=== PATIENT | female | born 1990 | race American Indian/Alaskan Native ===

== ENCOUNTER 2016-07-24 19:42 | Emergency (ER) | payer MEDICAID ==
[2016-07-24 20:13] VITALS: BP 156/78
[2016-07-24 20:27] LABS: Basophils % (Auto) 0.3 % (0.0-1.8); Eosinophils % (Auto) 3.3 % (0.0-4.3); Hematocrit 36.6 % (30.3-42.9); Mean Corpuscular HGB Conc 33 % (30-34); Mean Corpuscular Volume 76 fl (79-97); Platelet Count 288 K/mm3 (140-440); Red Blood Count 4.82 M/mm3 (3.65-5.03); Red Cell Distribution Width 13.7 % (13.2-15.2); White Blood Count 7.8 K/mm3 (4.5-11.0)
[2016-07-24 20:29] LABS: Mean Corpuscular Hemoglobin 25 pg (28-32)
[2016-07-24 20:49] LABS: Anion Gap 18 mmol/L; Blood Urea Nitrogen 9 mg/dL (7-17); Calcium 8.8 mg/dL (8.4-10.2); Carbon Dioxide 21 mmol/L (22-30); Chloride 102.1 mmol/L (98-107); Glucose 118 mg/dL (65-100); Sodium 137 mmol/L (137-145)
== END 2016-07-25 00:15 | disposition left against medical advice (07) ==
LOC: ED 19:42
DX: R42 Dizziness and giddiness (principal); R06.02 Shortness of breath; R68.83 Chills (without fever); Z53.21 Procedure and treatment not carried out due to patient leaving prior to being seen by health care provider
CPT/HCPCS: 36415; 80048; 84439; 84443; 84703; 85025; 93005; 93010

== ENCOUNTER 2018-10-17 14:55 | Emergency (ER) | payer SELFPAY | END 2018-10-17 17:00 | disposition left against medical advice (07) | LOC: ED 14:55 | DX: R51 Headache (principal); Z53.21 Procedure and treatment not carried out due to patient leaving prior to being seen by health care provider ==

== ENCOUNTER 2018-10-18 17:35 | Emergency (ER) | payer SELFPAY ==
[2018-10-18] MEDS ORDERED: TYLENOL PO ONE (19:57)
[2018-10-18] MEDS ORDERED: REGLAN PO ONE (19:57)
[2018-10-18] MEDS ORDERED: DECADRON IM ONE (19:57)
[2018-10-18] MEDS ORDERED: BENADRYL PO ONE (19:57)
--- NOTE | 2018-10-18 21:34 | Emergency Department Report ---
ED Headache HPI - General Chief Complaint: Headache Stated Complaint: HEADACHES Time Seen by Provider: 10/18/18 19:57 - History of Present Illness Initial Comments: Patient is a 27-year-old Citizen Of [place] female with hx of asthma , who presents for fall headache 3 days history of same history includes sinusitis and allergic rhinitis patient does state thick postnasal drip symptoms are exacerbated by position and movement this headache is similar to headaches of past. there is no fever at this time. Timing/Duration: other (3 days ) Quality: moderate Head Injury Location: frontal Recent Head Trauma: occasional headaches Associated Symptoms: fever/chills, nasal congestion, nasal drainage, sinus infection Allergies/Adverse Reactions: Allergies amoxicillin [Amoxicillin] Allergy (Verified 10/17/18 15:01) Hives Penicillins Allergy (Verified 10/17/18 15:01) Hives Home Medications: Ambulatory Orders Clindamycin [Clindamycin CAP] 300 mg PO TID #30 capsule 04/13/13 HYDROcodone/ACETAMINOPHEN [Mustang 5/325 Tablet] 1 each PO Q6HR #20 tablet 4 Loratadine [Claritin] 10 mg PO DAILY #30 tablet 04/13/13 Prednisone 40 mg PO QDAY #10 tablet 04/13/13 Acyclovir 400 mg PO TID #21 tablet 12/14/13 Prednisone [Prednisone 10 mg (6-Day Pack, 21 Tabs)] 10 mg PO .TAPER #1 tab.ds.pk 12/14/13 Sulfamethoxazole/Trimethoprim [Bactrim Ds] 1 each PO BID #24 tablet 12/14/13 ALBUTEROL NEB's [Proventil 0.083% NEBS] 2.5 mg IH TID PRN #25 neb 03/21/14 Albuterol Sulfate [Ventolin HFA] 2 puff IH Q4H PRN #1 hfa.aer.ad 03/21/14 Azithromycin [Zithromax Z-MIC] 250 mg PO DAILY #6 tablet 03/21/14 Codeine Phosphate/Guaifenesin [Guaifenesin-Codeine Syrup] 5 ml PO Q6H PRN #8 oz 03/21/14 Nebulizer [Compact Compressor Nebulizer] 1 each MC DAILY #1 kit 03/21/14 predniSONE [Deltasone] 50 mg PO QDAY #5 tab 03/21/14 ALBUTEROL Inhaler (OR & NICU) [ProAir HFA Inhaler] 2 puff IH QID PRN #1 inhalation 10/18/18 Acetaminophen [Acetaminophen TAB] 1,000 mg PO Q6HR PRN #30 tablet 10/18/18 Clindamycin [Clindamycin CAP] 300 mg PO Q8H 10 Days #30 cap 10/18/18 Metoclopramide [Reglan] 10 mg PO Q6H PRN #30 tab 10/18/18 diphenhydrAMINE [Benadryl CAP] 25 mg PO Q6HR PRN #30 capsule 10/18/18 ED Review of Systems ROS: Stated complaint: HEADACHES Other details as noted in HPI Constitutional: chills, fever, malaise Eyes: denies: eye pain, eye discharge, vision change ENT: congestion, other Respiratory: denies: cough, shortness of breath, wheezing Cardiovascular: denies: chest pain, palpitations Endocrine: no symptoms reported Gastrointestinal: denies: abdominal pain, nausea, diarrhea Genitourinary: denies: urgency, dysuria, discharge Musculoskeletal: denies: back pain, joint swelling, arthralgia Skin: denies: rash, lesions Neurological: denies: headache, weakness, paresthesias Psychiatric: denies: anxiety, depression Hematological/Lymphatic: denies: easy bleeding, easy bruising ED Past Medical Hx - Past Medical History Previous Medical History?: Yes Hx Hypertension: No Hx CVA: No Hx Heart Attack/AMI: No Hx Congestive Heart Failure: No Hx Diabetes: No Hx Deep Vein Thrombosis: No Hx Pulmonary Embolism: No Hx GERD: No Hx Liver Disease: No Hx Renal Disease: No Hx Sickle Cell Disease: No Hx Arthritis: No Hx Headaches / Migraines: Yes (frequent sinus infections) Hx Seizures: No Hx Kidney Stones: No Hx Psychiatric Treatment: No Hx Asthma: Yes Additional medical history: hyperthyroidism - Surgical History Past Surgical History?: Yes Hx Cholecystectomy: Yes Additional Surgical History: tubal ligation - Social History Smoking Status: Never Smoker - Medications Home Medications: Home Medications Medication Instructions Recorded Confirmed Last Taken Type Clindamycin [Clindamycin CAP] 300 mg PO TID #30 capsule 04/13/13 Unknown Rx HYDROcodone/ACETAMINOPHEN [Mustang 1 each PO Q6HR #20 tablet 04/13/13 Unknown Rx 5/325 Tablet] Loratadine [Claritin] 10 mg PO DAILY #30 tablet 04/13/13 Unknown Rx Prednisone 40 mg PO QDAY #10 tablet 04/13/13 Unknown Rx Acyclovir 400 mg PO TID #21 tablet 12/14/13 Unknown Rx Prednisone [Prednisone 10 mg 10 mg PO .TAPER #1 tab.ds.pk 12/14/13 Unknown Rx (6-Day Pack, 21 Tabs)] Sulfamethoxazole/Trimethoprim 1 each PO BID #24 tablet 12/14/13 Unknown Rx [Bactrim Ds] ALBUTEROL NEB's [Proventil 0.083% 2.5 mg IH TID PRN #25 neb 03/21/14 Unknown Rx NEBS] Albuterol Sulfate [Ventolin HFA] 2 puff IH Q4H PRN #1 hfa.aer.ad 03/21/14 Unknown Rx Azithromycin [Zithromax Z-MIC] 250 mg PO DAILY #6 tablet 03/21/14 Unknown Rx Codeine Phosphate/Guaifenesin 5 ml PO Q6H PRN #8 oz 03/21/14 Unknown Rx [Guaifenesin-Codeine Syrup] Nebulizer [Compact Compressor 1 each MC DAILY #1 kit 03/21/14 Unknown Rx Nebulizer] predniSONE [Deltasone] 50 mg PO QDAY #5 tab 03/21/14 Unknown Rx ALBUTEROL Inhaler (OR & NICU) 2 puff IH QID PRN #1 inhalation 10/18/18 Unknown Rx [ProAir HFA Inhaler] Acetaminophen [Acetaminophen TAB] 1,000 mg PO Q6HR PRN #30 tablet 10/18/18 Unknown Rx Clindamycin [Clindamycin CAP] 300 mg PO Q8H 10 Days #30 cap 10/18/18 Unknown Rx Metoclopramide [Reglan] 10 mg PO Q6H PRN #30 tab 10/18/18 Unknown Rx diphenhydrAMINE [Benadryl CAP] 25 mg PO Q6HR PRN #30 capsule 10/18/18 Unknown Rx ED Physical Exam - General Limitations: No Limitations General appearance: alert, in no apparent distress - Head Head exam: Present: atraumatic, normocephalic, normal inspection - Eye Eye exam: Present: normal appearance, PERRL, EOMI. Absent: conjunctival injection, nystagmus Pupils: Present: normal accommodation - ENT ENT exam: Present: mucous membranes moist, TM's normal bilaterally, normal external ear exam, other (bialt frontal and maxillary sinus pain to palpation no swelling no erythema ) - Expanded ENT Exam Expanded Throat exam: Positive: tonsillar erythema, tonsillomegaly, other (clear post nasal drip ). Negative: tonsillar exudate, R peritonsillar mass, L peritonsillar mass - Neck Neck exam: Present: normal inspection, full ROM, lymphadenopathy. Absent: tenderness, meningismus, thyromegaly - Expanded Neck Exam Expanded Neck exam: Absent: tenderness, midline deformity, anterior neck swelling, thyroid mass, carotid bruit, tracheal deviation - Respiratory Respiratory exam: Present: normal lung sounds bilaterally. Absent: respiratory distress, wheezes, stridor, chest wall tenderness - Cardiovascular Cardiovascular Exam: Present: regular rate, normal rhythm, normal heart sounds. Absent: systolic murmur, diastolic murmur, rubs, gallop - GI/Abdominal GI/Abdominal exam: Present: soft, normal bowel sounds. Absent: distended, tenderness, bruit, hernia - Rectal Rectal exam: Present: deferred - Extremities Exam Extremities exam: Present: normal inspection, full ROM, normal capillary refill. Absent: tenderness, pedal edema, joint swelling, calf tenderness - Back Exam Back exam: Present: normal inspection, full ROM. Absent: tenderness, CVA tenderness (R), CVA tenderness (L), muscle spasm, paraspinal tenderness, vertebral tenderness, rash noted - Neurological Exam Neurological exam: Present: alert, oriented X3, CN II-XII intact, normal gait, reflexes normal. Absent: motor sensory deficit - Psychiatric Psychiatric exam: Present: normal affect, normal mood - Skin Skin exam: Present: warm, dry, intact, normal color. Absent: rash ED Course Vital Signs 10/18/18 10/18/18 10/18/18 17:49 20:25 21:11 Temperature 98.4 F Pulse Rate 86 Respiratory 16 20 20 Rate Blood Pressure 129/75 O2 Sat by Pulse 100 Oximetry ED Medical Decision Making - Medical Decision Making headache improved with medications given in ed plan: tx for sinutis, clindamycin, tylenol, reglan, ibuprofen, will refill albuterol inhaler, pt will follow up with pcp in 2-3 days return to ed if symptoms worsen, pt verbalized agreement and understanding of discharge plan. Critical care attestation.: If time is entered above; I have spent that time in minutes in the direct care o f this critically ill patient, excluding procedure time. ED Disposition Clinical Impression: Sinusitis Qualifiers: Sinusitis location: maxillary Chronicity: acute Recurrence: non-recurrent Qualified Code(s): J01.00 - Acute maxillary sinusitis, unspecified Headache Qualifiers: Headache type: unspecified Headache chronicity pattern: acute headache Intractability: not intractable Qualified Code(s): R51 - Headache Disposition: DC- TO HOME OR SELFCARE Is pt being admited?: No Does the pt Need Aspirin: No Condition: Stable Instructions: Sinusitis (ED), Acute Headache (ED) Prescriptions: Acetaminophen [Acetaminophen TAB] 1,000 mg PO Q6HR PRN #30 tablet PRN Reason: Headache diphenhydrAMINE [Benadryl CAP] 25 mg PO Q6HR PRN #30 capsule PRN Reason: Headache Clindamycin [Clindamycin CAP] 300 mg PO Q8H 10 Days #30 cap ALBUTEROL Inhaler (OR & NICU) [ProAir HFA Inhaler] 2 puff IH QID PRN #1 inhalation PRN Reason: Shortness Of Breath Metoclopramide [Reglan] 10 mg PO Q6H PRN #30 tab PRN Reason: Headache Referrals: TARA SUNG MD [Primary Care Provider] - 3-5 Days Forms: Work/School Release Form(ED) Time of Disposition: 21:43
[2018-10-18 22:09] VITALS: BP 120/78
== END 2018-10-18 22:13 | disposition home or self-care (01) ==
LOC: ED 17:35
DX: J32.1 Chronic frontal sinusitis (principal); J32.0 Chronic maxillary sinusitis; G43.909 Migraine, unspecified, not intractable, without status migrainosus; J45.909 Unspecified asthma, uncomplicated; E05.90 Thyrotoxicosis, unspecified without thyrotoxic crisis or storm; Z90.49 Acquired absence of other specified parts of digestive tract; Z98.51 Tubal ligation status; Z79.899 Other long term (current) drug therapy; Z88.1 Allergy status to other antibiotic agents; Z88.0 Allergy status to penicillin
CPT/HCPCS: 96372; 99282; J1100

== ENCOUNTER 2019-01-17 10:34 | Emergency (ER) | payer SELFPAY ==
[2019-01-17 10:39] VITALS: BP 147/79
--- NOTE | 2019-01-17 10:52 | Emergency Department Report ---
ED ENT HPI - General Chief complaint: Sore Throat Stated complaint: STREP THROAT/HEADACHE Time Seen by Provider: 01/17/19 10:47 Source: patient Mode of arrival: Ambulatory Limitations: No Limitations - History of Present Illness Initial comments: This is a very pleasant 28-year-old female who presents with sore throat for the past 2 days. No fever. Mild nasal congestion. No cough. 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 Multiple sick contacts. Mild symptoms. Penicillin allergy history. MD complaint: sore throat -: Gradual, days(s) (2) Severity: mild Improves with: none Worsens with: swallowing - Related Data Previous Rx's Medication Instructions Recorded Last Taken Type Clindamycin [Clindamycin CAP] 300 mg PO TID #30 capsule 04/13/13 Unknown Rx HYDROcodone/ACETAMINOPHEN [[place] 1 each PO Q6HR #20 tablet 04/13/13 Unknown Rx 5/325 Tablet] Loratadine [Claritin] 10 mg PO DAILY #30 tablet 04/13/13 Unknown Rx Prednisone 40 mg PO QDAY #10 tablet 04/13/13 Unknown Rx Acyclovir 400 mg PO TID #21 tablet 12/14/13 Unknown Rx Prednisone [Prednisone 10 mg 10 mg PO .TAPER #1 tab.ds.pk 12/14/13 Unknown Rx (6-Day Pack, 21 Tabs)] Sulfamethoxazole/Trimethoprim 1 each PO BID #24 tablet 12/14/13 Unknown Rx [Bactrim Ds] ALBUTEROL NEB's [Proventil 0.083% 2.5 mg IH TID PRN #25 neb 03/21/14 Unknown Rx NEBS] Albuterol Sulfate [Ventolin HFA] 2 puff IH Q4H PRN #1 hfa.aer.ad 03/21/14 Unknown Rx Azithromycin [Zithromax Z-MIC] 250 mg PO DAILY #6 tablet 03/21/14 Unknown Rx Codeine Phosphate/Guaifenesin 5 ml PO Q6H PRN #8 oz 03/21/14 Unknown Rx [Guaifenesin-Codeine Syrup] Nebulizer [Compact Compressor 1 each MC DAILY #1 kit 03/21/14 Unknown Rx Nebulizer] predniSONE [Deltasone] 50 mg PO QDAY #5 tab 03/21/14 Unknown Rx ALBUTEROL Inhaler (OR & NICU) 2 puff IH QID PRN #1 inhalation 10/18/18 Unknown Rx [ProAir HFA Inhaler] Acetaminophen [Acetaminophen TAB] 1,000 mg PO Q6HR PRN #30 tablet 10/18/18 Unknown Rx Clindamycin [Clindamycin CAP] 300 mg PO Q8H 10 Days #30 cap 10/18/18 Unknown Rx Metoclopramide [Reglan] 10 mg PO Q6H PRN #30 tab 10/18/18 Unknown Rx diphenhydrAMINE [Benadryl CAP] 25 mg PO Q6HR PRN #30 capsule 10/18/18 Unknown Rx Azithromycin [Zithromax TAB] 250 mg PO QDAY 5 Days #6 tablet 01/17/19 Unknown Rx Allergies Allergy/AdvReac Type Severity Reaction Status Date / Time amoxicillin [Amoxicillin] Allergy Hives Verified 10/17/18 15:01 Penicillins Allergy Hives Verified 10/17/18 15:01 ED Dental HPI - General Chief complaint: Sore Throat Stated complaint: STREP THROAT/HEADACHE Time Seen by Provider: 01/17/19 10:47 Source: patient Mode of arrival: Ambulatory Limitations: No Limitations - Related Data Previous Rx's Medication Instructions Recorded Last Taken Type Clindamycin [Clindamycin CAP] 300 mg PO TID #30 capsule 04/13/13 Unknown Rx HYDROcodone/ACETAMINOPHEN [[place] 1 each PO Q6HR #20 tablet 04/13/13 Unknown Rx 5/325 Tablet] Loratadine [Claritin] 10 mg PO DAILY #30 tablet 04/13/13 Unknown Rx Prednisone 40 mg PO QDAY #10 tablet 04/13/13 Unknown Rx Acyclovir 400 mg PO TID #21 tablet 12/14/13 Unknown Rx Prednisone [Prednisone 10 mg 10 mg PO .TAPER #1 tab.ds.pk 12/14/13 Unknown Rx (6-Day Pack, 21 Tabs)] Sulfamethoxazole/Trimethoprim 1 each PO BID #24 tablet 12/14/13 Unknown Rx [Bactrim Ds] ALBUTEROL NEB's [Proventil 0.083% 2.5 mg IH TID PRN #25 neb 03/21/14 Unknown Rx NEBS] Albuterol Sulfate [Ventolin HFA] 2 puff IH Q4H PRN #1 hfa.aer.ad 03/21/14 Unknown Rx Azithromycin [Zithromax Z-MIC] 250 mg PO DAILY #6 tablet 03/21/14 Unknown Rx Codeine Phosphate/Guaifenesin 5 ml PO Q6H PRN #8 oz 03/21/14 Unknown Rx [Guaifenesin-Codeine Syrup] Nebulizer [Compact Compressor 1 each MC DAILY #1 kit 03/21/14 Unknown Rx Nebulizer] predniSONE [Deltasone] 50 mg PO QDAY #5 tab 03/21/14 Unknown Rx ALBUTEROL Inhaler (OR & NICU) 2 puff IH QID PRN #1 inhalation 10/18/18 Unknown Rx [ProAir HFA Inhaler] Acetaminophen [Acetaminophen TAB] 1,000 mg PO Q6HR PRN #30 tablet 10/18/18 Unknown Rx Clindamycin [Clindamycin CAP] 300 mg PO Q8H 10 Days #30 cap 10/18/18 Unknown Rx Metoclopramide [Reglan] 10 mg PO Q6H PRN #30 tab 10/18/18 Unknown Rx diphenhydrAMINE [Benadryl CAP] 25 mg PO Q6HR PRN #30 capsule 10/18/18 Unknown Rx Azithromycin [Zithromax TAB] 250 mg PO QDAY 5 Days #6 tablet 01/17/19 Unknown Rx Allergies Allergy/AdvReac Type Severity Reaction Status Date / Time amoxicillin [Amoxicillin] Allergy Hives Verified 10/17/18 15:01 Penicillins Allergy Hives Verified 10/17/18 15:01 ED Review of Systems ROS: Stated complaint: STREP THROAT/HEADACHE Other details as noted in HPI Constitutional: denies: fever, malaise ENT: denies: congestion Respiratory: denies: cough, shortness of breath Cardiovascular: denies: chest pain Gastrointestinal: denies: abdominal pain, nausea Skin: denies: rash, lesions Neurological: denies: headache ED Past Medical Hx - Past Medical History Hx Hypertension: No Hx CVA: No Hx Heart Attack/AMI: No Hx Congestive Heart Failure: No Hx Diabetes: No Hx Deep Vein Thrombosis: No Hx Pulmonary Embolism: No Hx GERD: No Hx Liver Disease: No Hx Renal Disease: No Hx Sickle Cell Disease: No Hx Arthritis: No Hx Headaches / Migraines: Yes (frequent sinus infections) Hx Seizures: No Hx Kidney Stones: No Hx Psychiatric Treatment: No Hx Asthma: Yes Additional medical history: hyperthyroidism - Surgical History Hx Cholecystectomy: Yes Additional Surgical History: tubal ligation - Social History Smoking Status: Never Smoker - Medications Home Medications: Home Medications Medication Instructions Recorded Confirmed Last Taken Type Clindamycin [Clindamycin CAP] 300 mg PO TID #30 capsule 04/13/13 Unknown Rx HYDROcodone/ACETAMINOPHEN [[place] 1 each PO Q6HR #20 tablet 04/13/13 Unknown Rx 5/325 Tablet] Loratadine [Claritin] 10 mg PO DAILY #30 tablet 04/13/13 Unknown Rx Prednisone 40 mg PO QDAY #10 tablet 04/13/13 Unknown Rx Acyclovir 400 mg PO TID #21 tablet 12/14/13 Unknown Rx Prednisone [Prednisone 10 mg 10 mg PO .TAPER #1 tab.ds.pk 12/14/13 Unknown Rx (6-Day Pack, 21 Tabs)] Sulfamethoxazole/Trimethoprim 1 each PO BID #24 tablet 12/14/13 Unknown Rx [Bactrim Ds] ALBUTEROL NEB's [Proventil 0.083% 2.5 mg IH TID PRN #25 neb 03/21/14 Unknown Rx NEBS] Albuterol Sulfate [Ventolin HFA] 2 puff IH Q4H PRN #1 hfa.aer.ad 03/21/14 Unknown Rx Azithromycin [Zithromax Z-MIC] 250 mg PO DAILY #6 tablet 03/21/14 Unknown Rx Codeine Phosphate/Guaifenesin 5 ml PO Q6H PRN #8 oz 03/21/14 Unknown Rx [Guaifenesin-Codeine Syrup] Nebulizer [Compact Compressor 1 each MC DAILY #1 kit 03/21/14 Unknown Rx Nebulizer] predniSONE [Deltasone] 50 mg PO QDAY #5 tab 03/21/14 Unknown Rx ALBUTEROL Inhaler (OR & NICU) 2 puff IH QID PRN #1 inhalation 10/18/18 Unknown Rx [ProAir HFA Inhaler] Acetaminophen [Acetaminophen TAB] 1,000 mg PO Q6HR PRN #30 tablet 10/18/18 Unknown Rx Clindamycin [Clindamycin CAP] 300 mg PO Q8H 10 Days #30 cap 10/18/18 Unknown Rx Metoclopramide [Reglan] 10 mg PO Q6H PRN #30 tab 10/18/18 Unknown Rx diphenhydrAMINE [Benadryl CAP] 25 mg PO Q6HR PRN #30 capsule 10/18/18 Unknown Rx Azithromycin [Zithromax TAB] 250 mg PO QDAY 5 Days #6 tablet 01/17/19 Unknown Rx ED Physical Exam - General Limitations: No Limitations General appearance: alert, in no apparent distress - Head Head exam: Present: atraumatic, normocephalic - Eye Eye exam: Absent: normal appearance, scleral icterus, conjunctival injection - ENT ENT exam: Present: other (erythematous edematous white exudates) - Neck Neck exam: Present: normal inspection, full ROM - Respiratory Respiratory exam: Absent: respiratory distress - Extremities Exam Extremities exam: Present: normal inspection - Neurological Exam Neurological exam: Present: alert, oriented X3 - Psychiatric Psychiatric exam: Present: normal affect, normal mood - Skin Skin exam: Present: warm, dry, intact, normal color ED Course Vital Signs 01/17/19 10:36 Temperature 97.9 F Pulse Rate 111 H Respiratory 19 Rate Blood Pressure 147/79 [Right] O2 Sat by Pulse 98 Oximetry ED Medical Decision Making - Medical Decision Making strep throat rx: azithromycin Critical care attestation.: If time is entered above; I have spent that time in minutes in the direct care of this critically ill patient, excluding procedure time. ED Disposition Clinical Impression: Strep throat Disposition: DC-01 TO HOME OR SELFCARE Is pt being admited?: No Does the pt Need Aspirin: No Condition: Stable Instructions: Strep Throat (ED) Prescriptions: Azithromycin [Zithromax TAB] 250 mg PO QDAY 5 Days #6 tablet
== END 2019-01-17 11:23 | disposition home or self-care (01) ==
LOC: ED 10:34
DX: J02.9 Acute pharyngitis, unspecified (principal); G43.909 Migraine, unspecified, not intractable, without status migrainosus; Z88.0 Allergy status to penicillin; Z88.1 Allergy status to other antibiotic agents; Z79.899 Other long term (current) drug therapy; Z90.49 Acquired absence of other specified parts of digestive tract; Z98.51 Tubal ligation status
CPT/HCPCS: 99281

== ENCOUNTER 2019-08-06 17:44 | Emergency (ER) | payer SELFPAY ==
[2019-08-06] MEDS ORDERED: SODIUM CHLORIDE 0.9% 1000 ML 1,000 ML IV ONE (17:47)
[2019-08-06] MEDS ORDERED: ALBUTEROL 2.5 MG/3 ML NEBU IH ONE (17:47)
[2019-08-06] MEDS ORDERED: IPRATROPIUM 0.02% NEBU 2.5 ML IH ONE (17:47)
[2019-08-06] MEDS ORDERED: methylPREDNISolone Sod Succinate 125 MG/2 ML INJ IV ONE (18:00)
--- NOTE | 2019-08-06 18:01 | Emergency Department Report ---
HPI - General Time Seen by Provider: 08/06/19 17:46 - HPI HPI: 28-year-old -[place] female presents to the emergency department from home with the complaint of a 2-day history of shortness of breath that has been getting progressively worse despite using her home inhaler and nebulizer treatments. She says she has a history of asthma but has not required any admission for asthma since she was 11 years old. She has never required intubation. She denies any fever but does admit to a dry cough and some wheezing. No recent travel or sick contacts at home. No known exposure to anyone with Covid 19. She denies any tobacco or illicit drug use. She also has a history of hypothyroidism. ED Past Medical Hx - Past Medical History Previous Medical History?: Yes Hx Hypertension: No Hx CVA: No Hx Heart Attack/AMI: No Hx Congestive Heart Failure: No Hx Diabetes: No Hx Deep Vein Thrombosis: No Hx Pulmonary Embolism: No Hx GERD: No Hx Liver Disease: No Hx Renal Disease: No Hx Sickle Cell Disease: No Hx Arthritis: No Hx Headaches / Migraines: Yes (frequent sinus infections) Hx Seizures: No Hx Kidney Stones: No Hx Psychiatric Treatment: No Hx Asthma: Yes Additional medical history: hyperthyroidism - Surgical History Past Surgical History?: Yes Hx Cholecystectomy: Yes Additional Surgical History: tubal ligation - Social History Smoking Status: Never Smoker Substance Use Type: Alcohol - Medications Home Medications: Home Medications Medication Instructions Recorded Confirmed Last Taken Type Clindamycin [Clindamycin CAP] 300 mg PO TID #30 capsule 04/13/13 Unknown Rx Loratadine (Nf) [Claritin] 10 mg PO DAILY #30 tablet 04/13/13 Unknown Rx Acyclovir 400 mg PO TID #21 tablet 12/14/13 Unknown Rx Albuterol Sulfate [Ventolin HFA] 2 puff IH Q4H PRN #1 hfa.aer.ad 03/21/14 Unknown Rx Azithromycin [Zithromax Z-MIC] 250 mg PO DAILY #6 tablet 03/21/14 Unknown Rx Codeine Phosphate/Guaifenesin 5 ml PO Q6H PRN #8 oz 03/21/14 Unknown Rx [Guaifenesin-Codeine Syrup] Nebulizer [Compact Compressor 1 each MC DAILY #1 kit 03/21/14 Unknown Rx Nebulizer] Acetaminophen [Acetaminophen TAB] 1,000 mg PO Q6HR PRN #30 tablet 10/18/18 Unknown Rx Albuterol INH(or & Nicu Only) 2 puff IH QID PRN #1 inhalation 10/18/18 Unknown Rx [ProAir HFA Inhaler] Clindamycin [Clindamycin CAP] 300 mg PO Q8H 10 Days #30 cap 10/18/18 Unknown Rx Metoclopramide [Reglan] 10 mg PO Q6H PRN #30 tab 10/18/18 Unknown Rx diphenhydrAMINE [Benadryl CAP] 25 mg PO Q6HR PRN #30 capsule 10/18/18 Unknown Rx Azithromycin [Zithromax TAB] 250 mg PO QDAY 5 Days #6 tablet 01/17/19 Unknown Rx ALBUTEROL NEB's [Proventil 0.083% 2.5 mg IH TID PRN #25 neb 08/06/19 Unknown Rx NEBS] predniSONE [Deltasone] 20 mg PO QDAY #3 tab 08/06/19 Unknown Rx ED Review of Systems ROS: Stated complaint: ASTHMA Other details as noted in HPI Comment: All other systems reviewed and negative Constitutional: denies: chills, fever Respiratory: cough, shortness of breath, wheezing Cardiovascular: denies: chest pain, edema Gastrointestinal: denies: abdominal pain, vomiting Genitourinary: denies: dysuria, discharge Musculoskeletal: denies: back pain, arthralgia Skin: denies: rash, lesions Neurological: denies: headache, weakness Physical Exam - Physical Exam Vital Signs: Vital Signs 08/06/19 08/06/19 17:52 17:58 Temperature 98.9 F Pulse Rate 89 Respiratory 28 H Rate Blood Pressure 139/92 O2 Sat by Pulse 99 Oximetry Physical Exam: GENERAL: The patient is well-developed well-nourished. HENT: Normocephalic. Atraumatic. Patient has moist mucous membranes. EYES: Extraocular motions are intact. NECK: Supple. Trachea is midline. CHEST/LUNGS: Mild wheezing throughout the chest. There is tachypnea but the patient appears to be hyperventilating. HEART/CARDIOVASCULAR: Regular. There is no tachycardia. ABDOMEN: Abdomen is soft, nontender. Patient has normal bowel sounds. SKIN: Skin is warm and dry. NEURO: The patient is awake, alert, and oriented. The patient is cooperative. The patient has no focal neurologic deficits. Normal speech. MUSCULOSKELETAL: There is no tenderness or deformity. There is no evidence of acute injury. ED Course Vital Signs 08/06/19 08/06/19 17:52 17:58 Temperature 98.9 F Pulse Rate 89 Respiratory 28 H Rate Blood Pressure 139/92 O2 Sat by Pulse 99 Oximetry ED Medical Decision Making - Lab Data Result diagrams: 08/06/19 18:03 08/06/19 18:03 - EKG Data -: EKG Interpreted by Me EKG shows normal: sinus rhythm, axis, intervals, QRS complexes, ST-T waves (T wave inversions to the lateral leads) Rate: normal - EKG Data When compared to previous EKG there are: previous EKG unavailable Interpretation: other (Sinus rhythm, normal axis, normal intervals, T wave inversions to the lateral leads) - Radiology Data Radiology results: image reviewed interpreted by me: Chest x-ray does not show any acute process. There are no pleural effusions, obvious pneumonia and there is no pneumothorax. - Medical Decision Making This patient presents to the emergency department with a complaint of a 1 to 2- day history of progressively worsening shortness of breath despite using her albuterol inhaler and nebulizer treatments. She does present with tachypnea but appears to be hyperventilating. Patient was given supplemental oxygen and then immediately given a breathing treatment with both albuterol and ipratropium. Patient was also given some IV fluid resuscitation and a dose of Solu-Medrol. Labs were unremarkable except for slightly decrease in the bicarb level, most likely from her hyperventilation. She had mild wheezing on examination initially that resolved after the treatments. Chest x-ray did not show any pneumonia, pleural effusions, pneumothorax, or any other acute process. Vital signs stable throughout her ED course including being afebrile and no hypoxia. The patient was reevaluated multiple times over multiple hours and says she is feeling greatly improved. She will be discharged home to follow-up with primary care and will return to the ER with any worsening of her symptoms or any acute distress. Critical Care Time: No Critical care attestation.: If time is entered above; I have spent that time in minutes in the direct care of this critically ill patient, excluding procedure time. ED Disposition Clinical Impression: Asthma exacerbation Qualifiers: Asthma severity: unspecified severity Asthma persistence: unspecified Qualified Code(s): J45.901 - Unspecified asthma with (acute) exacerbation Disposition: DC- TO HOME OR SELFCARE Is pt being admited?: No Condition: Stable Instructions: Asthma (ED) Additional Instructions: Please follow-up with a primary care physician in the next few days. Return to the emergency department with any worsening of your symptoms or any acute di stress. Prescriptions: predniSONE [Deltasone] 20 mg PO QDAY #3 tab ALBUTEROL NEB's [Proventil 0.083% NEBS] 2.5 mg IH TID PRN #25 neb PRN Reason: Wheezing Referrals: [facility] [Provider Group] - 2-3 Days Time of Disposition: 20:15
[2019-08-06 18:28] LABS: Basophils # (Auto) 0.1 K/mm3 (0.0-0.1); Basophils % (Auto) 0.9 % (0.0-1.8); Eosinophils # (Auto) 0.4 K/mm3 (0.0-0.4); Eosinophils % (Auto) 4.2 % (0.0-4.3); Hematocrit 39.3 % (30.3-42.9); Lymphocytes % (Auto) 34.5 % (13.4-35.0); Mean Corpuscular HGB Conc 33 % (30-34); Mean Corpuscular Volume 84 fl (79-97); Monocytes # (Auto) 0.5 K/mm3 (0.0-0.8); Monocytes % (Auto) 5.9 % (0.0-7.3); Platelet Count 340 K/mm3 (140-440); Red Blood Count 4.68 M/mm3 (3.65-5.03); Red Cell Distribution Width 14.2 % (13.2-15.2)
[2019-08-06 18:37] LABS: BUN/Creatinine Ratio 23; Blood Urea Nitrogen 16 mg/dL (7-17); Hemolysis Index 26
[2019-08-06 18:43] LABS: INR 1.07 (0.87-1.13)
--- NOTE | 2019-08-06 19:51 | XRay Report ---
CHEST 1 VIEW INDICATION / CLINICAL INFORMATION: SOB. COMPARISON: None available. FINDINGS: SUPPORT DEVICES: None. HEART / MEDIASTINUM: No significant abnormality. LUNGS / PLEURA: No significant pulmonary or pleural abnormality. No pneumothorax. ADDITIONAL FINDINGS: No significant additional findings. IMPRESSION: 1. No acute findings. Signer Name: Christopher Ramirez MD Signed: 08/06/2019 7:46 PM Workstation Name: [id number]
[2019-08-06 21:23] VITALS: BP 119/74
== END 2019-08-06 21:24 | disposition home or self-care (01) ==
LOC: ED 17:44
DX: J45.901 Unspecified asthma with (acute) exacerbation (principal); G43.909 Migraine, unspecified, not intractable, without status migrainosus; Z79.899 Other long term (current) drug therapy
CPT/HCPCS: 36415; 71045; 80048; 84484; 84703; 85025; 85610; 93005; 94640; 96374; 99284; J2930; J7030; 94644

== ENCOUNTER 2020-05-01 16:59 | Emergency (ER) | payer OTHER ==
[2020-05-01 17:37] VITALS: BP 115/56
== END 2020-05-01 18:49 | disposition left against medical advice (07) ==
LOC: ED 16:59
DX: J02.9 Acute pharyngitis, unspecified (principal); Z53.21 Procedure and treatment not carried out due to patient leaving prior to being seen by health care provider